=== PATIENT | female | born 1980 | race Asian ===

== ENCOUNTER 2018-04-05 09:33 | Observation (INO) | payer BC ==
[2018-04-05 10:57] LABS: PLATELET COUNT 150 10^3/uL (150-400)
--- NOTE | 2018-04-05 11:33 | GHP ---
DATE OF ADMISSION: 04/05/2018 TRIAGE NOTE OBSERVATION DIAGNOSIS: Intrauterine at 39 weeks gestation for blood pressure monitoring, r ule out preeclampsia. HISTORY OF PRESENT ILLNESS: The patient is a 38-year-old 1, para 0-0-1-0 with a last menstru al period of 07/05/2017, and an EDC of 04/11/2018 which was confirmed by a 12 week ultrasound. She h as had good care at [facility] since registration at 12 weeks gestation. course has been complicated only by AMA and she has had a negative test on level 2 ultraso und and anemia and she is on iron twice daily. On Sunday she was seen in the office for a regular sc heduled visit and had mildly elevated blood pressure at 128/80. She is asymptomatic. Denie s headache, scotomata, right upper quadrant pain or increased swelling and her urine dip has been neg ative. She was recommended to return to the office on Sunday for a repeat blood pressure check. Totj ozuna in the office she had 1 blood pressure, 142/84 and another one of 138/80, and she was sent to labo r and delivery for a full evaluation. She has been on labor and delivery and she continues to be asy mptomatic without complaint. She feels well in general. Blood pressures have been 122-137/76-86 at the highest, general 126/86, 122/77, 137/83, 134/81, 121/76, and 125/83. heart tones are 130s, reactive, moderate, variability category 1. She is karyn irregularly, does not feel them. Sh e denies leakage of fluid, vaginal bleeding, or any labor symptoms. ASSESSMENT AND PLAN: 38-year-old, 1, para 0, at 39 weeks gestation for blood pressure check and rule out preeclampsia. Patient has pH labs pending as well as urine P to C ratio. We will keep monitoring her blood pressures closely. If her labs remain negative and blood pressures remain in th is range she will be discharged home to follow up with [facility] on Sunday and given preca utions to call for headache, scotomata, right upper quadrant pain, or any other concerning symptoms. /[id number]/MODL
== END 2018-04-05 13:00 | disposition home or self-care (01) ==
LOC: FLD 09:33
PROVIDERS: ADMIT Obstetrics & Gynecology; ATTEND Obstetrics & Gynecology
DX: O13.3 Gestational [pregnancy-induced] hypertension without significant proteinuria, third trimester (principal); Z3A.39 39 weeks gestation of pregnancy
CPT/HCPCS: G0378 ×2

== ENCOUNTER 2018-04-12 06:57 | Inpatient (IN) | payer BC ==
[2018-04-12] MEDS ORDERED: OXYTOCIN/LR *STANDARD DOSE PROTOCOL IV SCH (07:30)
[2018-04-12] MEDS ORDERED: OXYTOCIN/RINGERS LACTATE 1,000 ML IV PRN (07:51)
[2018-04-12] MEDS ORDERED: OLIVE OIL 118 ML BTL MISC PRN (07:51)
[2018-04-12] MEDS ORDERED: TERBUTALINE SULFATE 1 MG/ML VIAL IV PRN (07:51)
[2018-04-12] MEDS ORDERED: IBUPROFEN 600 MG TAB PO PRN (07:51)
[2018-04-12] MEDS ORDERED: MISOPROSTOL 200 MCG TAB PR PRN (07:51)
[2018-04-12] MEDS ORDERED: LIDOCAINE 1% 300 MG/30 ML SDV SC PRN (07:51)
[2018-04-12] MEDS ORDERED: LR 1,000 ML IV PRN (07:51)
[2018-04-12] MEDS ORDERED: EPSOM SALT 454 GM TP PRN (07:51)
[2018-04-12 08:16] LABS: PLATELET COUNT 142 10^3/uL (150-400)
--- NOTE | 2018-04-12 11:12 | PDGENHP ---
History and Physical - Chief Complaint IOL, Gestational HTN - History of Present Illness 38 yo G1PO presented yesterday at 40w0d by JAYLYN of 04/11/18 for IOL secondary to new dx of Gestational HTN. BP's newly elevated in the office to mild range, sent to L&D for further monitoring and with more elevated pressures was recommended for IOL and had jeffries bulb placed. She denies any s/sx of preecclampsia on admission. overall quite uncomplicated otherwise. Anemia on iron supps. AMA. Labs: A Pos Antibody Neg RPR NR Rubella immune Hep B Neg HIV neg Trio Neg Standard neg TSH 3.7 Varicella immune GC/C neg AFP neg NIPT normal unknown gender GBS NEGATIVE History Information - Allergies/Home Medication List Allergies/Adverse Reactions: No Known Allergies Allergy (Unverified 04/05/18 09:51) I have personally reviewed and updated: family history, medical history, social history, surgical history - Past Medical History Additional medical history: Anemia, AMA, heartburn - Surgical History Additional surgical history: None - Family History Additional family history: Kidney disease (dialysis), Hypothyroid, RA - Social History Smoking Status: Never smoked Alcohol Use: None Review of Systems Review of Systems: ROS: 10pt was reviewed & negative except for what was stated in HPI & below Physical Exam Physical Exam: Alert, pleasant, NAD. Belly soft, longitudinal lie. Per KS - 1cm and long with jeffries bulb placement. FHR 130s, mod joselo, accels present, no decels. Lab Data & Imaging Review 04/12/18 05:55 04/12/18 08:00 WBC 6.29 10^3/uL (3.80-9.50) 04/12/18 05:55 RBC 4.16 10^6/uL (4.18-5.33) L 04/12/18 05:55 Hgb 12.5 g/dL (12.6-16.3) L 04/12/18 05:55 Hct 36.0 % (38.0-47.0) L 04/12/18 05:55 MCV 86.5 fL (81.5-99.8) 04/12/18 05:55 MCH 30.0 pg (27.9-34.1) 04/12/18 05:55 MCHC 34.7 g/dL (32.4-36.7) 04/12/18 05:55 RDW 12.6 % (11.5-15.2) 04/12/18 05:55 Plt Count 142 10^3/uL (150-400) L 04/12/18 05:55 MPV 11.2 fL (8.7-11.7) 04/12/18 05:55 Neut % (Auto) 64.0 % (39.3-74.2) 04/12/18 05:55 Lymph % (Auto) 27.3 % (15.0-45.0) 04/12/18 05:55 Kidder % (Auto) 6.5 % (4.5-13.0) 04/12/18 05:55 Eos % (Auto) 1.7 % (0.6-7.6) 04/12/18 05:55 Baso % (Auto) 0.2 % (0.3-1.7) L 04/12/18 05:55 Nucleat RBC Rel Count 0.0 % (0.0-0.2) 04/12/18 05:55 Absolute Neuts (auto) 4.02 10^3/uL (1.70-6.50) 04/12/18 05:55 Absolute Lymphs (auto) 1.72 10^3/uL (1.00-3.00) 04/12/18 05:55 Absolute Monos (auto) 0.41 10^3/uL (0.30-0.80) 04/12/18 05:55 Absolute Eos (auto) 0.11 10^3/uL (0.03-0.40) 04/12/18 05:55 Absolute Basos (auto) 0.01 10^3/uL (0.02-0.10) L 04/12/18 05:55 Absolute Nucleated RBC 0.00 10^3/uL (0-0.01) 04/12/18 05:55 Immature Gran % 0.3 % (0.0-1.1) 04/12/18 05:55 Immature Gran # 0.02 10^3/uL (0.00-0.10) 04/12/18 05:55 BUN 14 mg/dL (7-23) 04/12/18 08:00 Creatinine 0.6 mg/dL (0.6-1.0) 04/12/18 08:00 Estimated GFR > 60 04/12/18 08:00 Uric Acid 4.7 mg/dL (2.5-6.8) 04/12/18 08:00 Total Bilirubin 0.2 mg/dL (0.1-1.4) 04/12/18 08:00 Conjugated Bilirubin 0.1 mg/dL (0.0-0.5) 04/12/18 08:00 Unconjugated Bilirubin 0.1 mg/dL (0.0-1.1) 04/12/18 08:00 AST 24 IU/L (14-46) 04/12/18 08:00 ALT 23 IU/L (9-52) 04/12/18 08:00 Lactate Dehydrogenase 374 IU/L (313-618) 04/12/18 08:00 Patient ABO/Rh A POSITIVE 04/12/18 05:55 Antibody Screen NEGATIVE 04/12/18 05:55 Assessment & Plan Assessment: 38 yo G1 now at 40w1d here for IOL due to Gestational HTN. IOL: - Jeffries bulb still in place, Pit started this AM. Just started to feel uncomfortable ctx's this AM. - Will check when uncomfortable and take down jeffries, consider AROM. - Epidural PRN, pt prefers to avoid if possible. - GBS NEGATIVE. GHTN: - BP's mild range last night and this AM, no s/sx of PIH. - Labs WNL this AM, will repeat with changing BP or sx. - No meds thus far. Anemia - Will need iron supps PP. Rh pos, Rubella and Varicella immune. WILLIAMS
[2018-04-12] MEDS ORDERED: LIDOCAINE 1% 300 MG/30 ML SDV ONE (18:22)
[2018-04-12] MEDS ORDERED: OLIVE OIL 118 ML BTL ONE (18:23)
[2018-04-12] MEDS ORDERED: MISOPROSTOL 200 MCG TAB ONE (18:23)
[2018-04-12] MEDS ORDERED: TERBUTALINE SULFATE 1 MG/ML VIAL ONE (18:23)
[2018-04-12] MEDS ORDERED: AMMONIA AROMATIC 1 EACH AMP IH ONE (18:23)
[2018-04-12] MEDS ORDERED: fentaNYL 2MCG/ML/BUP 0.1% RTU 100 ML BAG EP ONE (19:40)
[2018-04-12] MEDS ORDERED: fentaNYL 100 MCG/2 ML INJ ONE (19:40)
[2018-04-12] MEDS ORDERED: PHENYLEPHRINE HCL 100 MCG/ML SYR ONE (19:40)
--- NOTE | 2018-04-12 20:09 | PDANEPAE ---
ANE History of Present Illness labor ANE Past Medical History - Cardiovascular History Hx Hypertension: Yes Hx Arrhythmias: No Hx Chest Pain: No Hx Coronary Artery / Peripheral Vascular Disease: No Hx CHF / Valvular Disease: No Hx Palpitations: No - Pulmonary History Hx COPD: No Hx Asthma/Reactive Airway Disease: No Hx Recent Upper Respiratory Infection: No Hx Oxygen in Use at Home: No Hx Sleep Apnea: No - Neurologic History Hx Cerebrovascular Accident: No Hx Seizures: No Hx Dementia: No - Endocrine History Hx Diabetes: No Hypothyroid: No Hyperthyroid: No Obesity: no - Renal History Hx Renal Disorders: No - Liver History Hx Hepatic Disorders: No - Chronic Pain History Chronic Pain: No ANE Review of Systems Review of Systems: - Exercise capacity Exercise capacity: >=4 METS ANE Patient History - Allergies Allergies/Adverse Reactions: No Known Allergies Allergy (Unverified 04/05/18 09:51) - Home Medications Home Medications: Iron 1 tab PO BID 04/12/18 [Last Taken Unknown] 1 tab PO DAILY 04/12/18 [Last Taken Unknown] - Anes Hx Hx Anesthesia Complications (with details): no prior anesthetics - Smoking Hx Smoking Status: Never smoked - Alcohol Use Alcohol Use: None ANE Labs/Vital Signs - Labs Result Diagrams: 04/12/18 05:55 04/12/18 08:00 - Vital Signs Height: 162.56 cm Weight: 60.781 kg ANE Physical Exam - Airway Mallampati Score: Class 2 Mouth exam: normal dental/mouth exam - Pulmonary Pulmonary: no respiratory distress - Cardiovascular Cardiovascular: regular rate and rhythym - ASA Status ASA Status: II ANE Anesthesia Plan Anesthesia Plan: spinal, epidural
[2018-04-12] MEDS ORDERED: ONDANSETRON 4 MG/2 ML VIAL IVP PRN (20:10)
[2018-04-12] MEDS ORDERED: PHENYLEPHRINE HCL 100 MCG/ML SYR IVP PRN (20:10)
[2018-04-12] MEDS ORDERED: NALOXONE HCL 0.4 MG/ML INJ IVP PRN (20:10)
--- NOTE | 2018-04-12 20:10 | PREANESOB ---
Obstetric Pre-Anesthesia Info - General Info Proposed Procedure: labor epidural : 1 Para: 0 JAYLYN: 04/11/18 Gestational Age: 40 week(s) and 1 day(s) - Info Status: Full Term FHR Pattern: Reassuring - Labor Status Cervical Dilation per last OB SVE: 6 Pitocin: In Use Indications for Labor Analgesia: Augmentation of Labor, Pain Control Anesthesia Allergies/Adverse Reactions: Allergy/AdvReac Type Severity Reaction Status Date / Time No Known Allergies Allergy Unverified 04/05/18 09:51 Home Medications: Medication Instructions Recorded Iron 1 tab PO BID 04/12/18 1 tab PO DAILY 04/12/18 Visit Medications: Generic Name Dose Route Start Last Admin Trade Name Freq PRN Reason Stop Dose Admin Diphenhydramine HCl 25 mg 04/12/18 17:17 04/12/18 17:22 Benadryl Injection IVP 10/09/18 17:16 25 mg Q4HRS PRN Administration Itching Oxytocin/Lactated Ringer's 500 mls @ 0 mls/hr 04/12/18 07:30 Pitocin 30 Units/Lr (Premix) IV 10/09/18 07:29 CONT SALLY Protocol Per Protocol Lactated Ringer's 1,000 mls @ 0 mls/hr 04/12/18 07:51 04/12/18 08:14 Lr IV 04/13/18 07:50 1,000 mls PRN PRN Administration SEE PROTOCOL CONDITIONS Protocol Per Protocol Oxytocin/Lactated Ringer's 1,000 mls @ 125 mls/hr 04/12/18 07:51 Pitocin 20 Units/Lr (Premix) IV PRN PRN Post bleeding Ibuprofen 600 mg 04/12/18 07:51 Motrin PO ONCE PRN post , pain Lidocaine HCl 300 mg 04/12/18 07:51 Lidocaine Hcl 1% SC 10/09/18 07:50 ONCE PRN episiotomy Magnesium Sulfate 454 gm 04/12/18 07:51 Epsom Salt TP 10/09/18 07:50 Q1H PRN perineal discomfort Misoprostol 800 - 1,000 mcg 04/12/18 07:51 Cytotec [place] ONCE PRN Vaginal Atony/Bleeding [place] Oil 118 ml 04/12/18 07:51 Sweet Oil MISC 10/09/18 07:50 ONCE PRN perineal massage Terbutaline Sulfate 0.25 mg 04/12/18 07:51 Brethine IV 10/09/18 07:50 ONCE PRN Tachysystole Discontinued Medications Generic Name Dose Route Start Last Admin Trade Name Susie PRN Reason Stop Dose Admin Ammonia (Aromatic Spirit) Confirm 04/12/18 18:23 Ammonia Aromatic Administered 04/12/18 18:24 Dose 1 each IH .STK-MED ONE Fentanyl Confirm 04/12/18 19:40 Sublimaze Administered 04/12/18 19:41 Dose 100 mcg .ROUTE .STK-MED ONE Fentanyl/Bupivacaine HCl Confirm 04/12/18 19:40 Fentanyl/Bupivacaine/Ns 2 Mcg/Ml 0.1% (Premix Administered 04/12/18 19:41 Dose 100 ml EP .STK-MED ONE Lidocaine HCl Confirm 04/12/18 18:22 Lidocaine Hcl 1% Administered 04/12/18 18:23 Dose 300 mg .ROUTE .STK-MED ONE Misoprostol Confirm 04/12/18 18:23 Cytotec Administered 04/12/18 18:24 Dose 1,000 mcg .ROUTE .STK-MED ONE [place] Oil Confirm 04/12/18 18:23 Sweet Oil Administered 04/12/18 18:24 Dose 118 ml .ROUTE .STK-MED ONE Phenylephrine HCl Confirm 04/12/18 19:40 Neosynephrine Administered 04/12/18 19:41 Dose 1,000 mcg .ROUTE .STK-MED ONE Terbutaline Sulfate Confirm 04/12/18 18:23 Brethine Administered 04/12/18 18:24 Dose 1 mg .ROUTE .STK-MED ONE - Anesthesia History Response to Local Anesthetics: Normal Anesthesia & Operative History: No Prior Problems - Vital Signs Height/Weight (Nursing): Height 162.56 cm Weight 60.781 kg - Focused Exam Mallampati Score: Class 2 Mouth exam: normal dental/mouth exam Pulmonary: no respiratory distress Cardiovascular: regular rate and rhythym Labs: 04/12/18 05:55 04/12/18 08:00 Patient ABO/Rh A POSITIVE 04/12/18 05:55 Uric Acid 4.7 mg/dL (2.5-6.8) 04/12/18 08:00 Total Bilirubin 0.2 mg/dL (0.1-1.4) 04/12/18 08:00 Conjugated Bilirubin 0.1 mg/dL (0.0-0.5) 04/12/18 08:00 Unconjugated Bilirubin 0.1 mg/dL (0.0-1.1) 04/12/18 08:00 AST 24 IU/L (14-46) 04/12/18 08:00 ALT 23 IU/L (9-52) 04/12/18 08:00 Lactate Dehydrogenase 374 IU/L (313-618) 04/12/18 08:00 - Plan Consent Signed and on Chart: Yes Patient/Guardian Understands and Agrees to Plan: Yes
[2018-04-12] MEDS ORDERED: LR 500 ML IV SCH (20:30)
[2018-04-12] MEDS ORDERED: fentaNYL 2MCG/ML/BUP 0.1% RTU 100 ML EP SCH (20:30)
--- NOTE | 2018-04-13 02:23 | OBDEL ---
Info Type: Vaginal Presentation at Delivery: Vertex L&D Analgesia/Anesthesia Type: Epidural GBS+: No Intrapartum Medications: Generic Name Dose Route Start Last Admin Trade Name Freq PRN Reason Stop Dose Admin Diphenhydramine HCl 25 mg 04/12/18 17:17 04/12/18 17:22 Benadryl Injection IVP 10/09/18 17:16 25 mg Q4HRS PRN Administration Itching Lactated Ringer's 1,000 mls @ 0 mls/hr 04/12/18 07:51 04/12/18 08:14 Lr IV 04/13/18 07:50 1,000 mls PRN PRN Administration SEE PROTOCOL CONDITIONS Protocol Per Protocol Fentanyl/Bupivacaine HCl 100 mls @ 0 mls/hr 04/12/18 20:30 04/12/18 20:24 Fentanyl/Bupivacaine/Ns 2 Mcg/Ml 0.1% (Premix EP 04/22/18 20:29 100 mls CONT SALLY Administration Protocol As Directed Lactated Ringer's 500 mls @ 0 mls/hr 04/12/18 20:30 04/12/18 20:20 Lr IV 10/09/18 20:29 500 mls CONT SALLY Administration As Directed [place] Oil 118 ml 04/12/18 07:51 04/12/18 23:18 Sweet Oil MISC 10/09/18 07:50 1 btl ONCE PRN Administration perineal massage Indications for Delivery: Gestational Hypertension (40 wks) Vaginal Delivery - Delivery Provider Delivery Physician/CNM: Ben Dawson - Labor and Delivery Onset of Contractions Date: 04/12/18 Onset of Contractions Time: 14:10 Onset of Contractions Type: Augmented Rupture of Membranes Date: 04/12/18 Rupture of Membranes Time: 14:00 Rupture of Membranes Type: Spontaneous Amniotic Fluid Color: Clear Dilation Complete Date: 04/12/18 Dilation Complete Time: 22:54 Placenta Delivery Date: 04/13/18 Placenta Delivery Time: 00:37 Total Hours of Labor: 10 Laceration: 2nd Degree, Other (Specify) (right labial) Repair: 3-0, 4-0 Vaginal Sponge Count Correct: Yes Vaginal Needle Count Correct: Yes Vaginal Sweep Performed: Yes EBL: 300 Delivery Events: None - Medications Labor Augmentation/Induction Methods Used: Pitocin, [place] Bulb Labor Augmentation/Induction Indication: Inadequate Contraction Frequency, Inadequate Contraction Strength, Other (Specify) (GHTN) Data JAYLYN: 04/11/18 Gestational Age: 40 week(s) and 2 day(s) Zimmerman Delivery Date: 04/13/18 Delivery Time: 00:30 Sex of : Female Score (1 Min): 8 Score (5 Min): 9 Shoulder Dystocia Time Head Delivered: 00:30 Time Body Delivered: 00:30 ICD10 Worksheet Patient Problems: Problems Problem Status Onset Gestational hypertension Acute (spontaneous vaginal delivery) Acute - ICD10 Problem Qualifiers (1) Gestational hypertension Qualifiers: Trimester: third trimester Qualified Code(s): O13.3 - Gestational [ -induced] hypertension without significant proteinuria, third trimester (2) (spontaneous vaginal delivery)
[2018-04-13] MEDS ORDERED: SIMETHICONE 80 MG TAB CHEW PO PRN (02:24)
[2018-04-13] MEDS ORDERED: oxyCODONE IR 5 MG TAB PO PRN (02:24)
[2018-04-13] MEDS ORDERED: HYDROCORTISONE 0.5% CREAM TP PRN (02:24)
[2018-04-13] MEDS ORDERED: DOCUSATE SODIUM 100 MG CAP PO PRN (02:24)
[2018-04-13] MEDS: ACETAMINOPHEN 325 MG TAB PO SCH ×4 (03:10→20:13)
--- NOTE | 2018-04-13 07:59 | POSTANESTH ---
Post Anesthetic Evaluation Cardiovascular Status: Normal, Stable Respiratory Status: Normal, Stable Level of Consciousness/Mental Status: Can Participate in Eval Pain Control: Adequate, Prn Tx Ordered Nausea/Vomiting Control: Adequate, Prn Tx Ordered Complications Possibly Related to Anesthesia: None Noted (Patient reports satisfaction with labor IVAN. She is able to ambulate to restroom to urinate without difficulty this am, denies residual weakness/numbness/headache.Point tenderness at IVAN puncture site, no erythema/edema.)
[2018-04-13] MEDS: IBUPROFEN 600 MG TAB PO SCH ×2 (10:14→17:46)
[2018-04-13] MEDS ORDERED: IRON POLYSAC/IRON HEME 28 MG TAB PO SCH (10:15)
--- NOTE | 2018-04-13 11:41 | OBPP ---
Progress Note Assessment/Plan: Assessment: PPD 1/2 gest HTN, b/p normal range, labs yesterday normal rash - on abd since , new on legs today --no itching anemia Plan: I feel benign rash, routine care,iron BID 04/13/18 11:38 04/13/18 11:39 Subjective/ Course: 04/13/18 11:39 Pt doing ok - feeling tired - no sleep yet. baby hasn't had really successful latch yet - reports baby does latch/suck on finger. discussed rash - no itching...pt not aware of it until RN mentioned it. Bld is like heavy menses. urinated fine No ACEVEDO or N/V, reports face feels puffy 04/13/18 11:41 04/13/18 11:42 Objective: 04/13/18 06:00 04/12/18 08:00 Patient ABO/Rh A POSITIVE 04/12/18 05:55 Uric Acid 4.7 mg/dL (2.5-6.8) 04/12/18 08:00 Total Bilirubin 0.2 mg/dL (0.1-1.4) 04/12/18 08:00 Conjugated Bilirubin 0.1 mg/dL (0.0-0.5) 04/12/18 08:00 Unconjugated Bilirubin 0.1 mg/dL (0.0-1.1) 04/12/18 08:00 AST 24 IU/L (14-46) 04/12/18 08:00 ALT 23 IU/L (9-52) 04/12/18 08:00 Lactate Dehydrogenase 374 IU/L (313-618) 04/12/18 08:00 Temp Pulse Resp BP Pulse Ox 36.6 C 80 18 110/59 L 98 04/13/18 06:00 04/13/18 06:00 04/13/18 06:00 04/13/18 06:00 04/13/18 06:00 Uterine Position/Fundal Height: At Umbilicus Uterine Tone: Firm Physical Exam - Physical Exam Abdomen: non-tender, soft, other (FF at umb, fine macular rash on mid abd) Extremities: non-tender, pedal edema (none, rash on lower ext bilat and behind thighs ) Skin: normal color, warm/dry, rash (as noted above) Neuro/Psych: alert, normal mood/affect
[2018-04-13] MEDS: FERROUS SULFATE 325 MG TAB PO SCH ×2 (14:50→20:13)
[2018-04-14] MEDS: IBUPROFEN 600 MG TAB PO SCH ×6 (01:26→23:11)
[2018-04-14] MEDS: DIPHENHYDRAMINE CREAM TP PRN ×3 (01:39→23:19)
[2018-04-14] MEDS: ACETAMINOPHEN 325 MG TAB PO SCH ×3 (03:47→18:09)
[2018-04-14] MEDS: FERROUS SULFATE 325 MG TAB PO SCH ×2 (08:44→23:14)
--- NOTE | 2018-04-14 11:40 | OBPP ---
Progress Note Assessment/Plan: Assessment: PPD2 s/p - IOL for new dx of GHTN at 40wks. Never needed medications for BP 's, never sx, no lab abnormalities. GHTN: BP's mild range to normal, asymptomatic. Rash: I think this is PUPPs - discussed that could be true allergy, or Atopic Rash of (excematous, etc), vs PUPPs. I think the look, presentation, flare , periumbilical sparing... all suggest PUPPs. Also there really werent' any new meds/additions when this started to point to allergy. Discussed observation, oatmeal baths, topical and oral antihistamines as first line. Next steps would be topical (mid-potency) steroid, followed by oral prednisone taper if really bothered by sx. She'd like to avoid steroids if possible. Anemia: Iron supps. Dispo: Would like to stay until tomorrow, I think prudent given that this rash is also currently worse than it was the day before. JM Subjective/ Course: Generally doing well although more bothered - and more concerned - about this rash. Began on her abdomen in the week PRIOR to induction and delivery - no new foods or drugs during that time to point to allergic cause. Was present only on abdomen and not too bothersome on admission and with delivery, but has noticed spreading on belly and present on dependent area of thighs and down her shins. Slightly tender, feels "warm and tense" under the skin, a bit itching. BF otherwise going well. Pain controlled. Objective: 04/13/18 06:00 04/12/18 08:00 Patient ABO/Rh A POSITIVE 04/12/18 05:55 Uric Acid 4.7 mg/dL (2.5-6.8) 04/12/18 08:00 Total Bilirubin 0.2 mg/dL (0.1-1.4) 04/12/18 08:00 Conjugated Bilirubin 0.1 mg/dL (0.0-0.5) 04/12/18 08:00 Unconjugated Bilirubin 0.1 mg/dL (0.0-1.1) 04/12/18 08:00 AST 24 IU/L (14-46) 04/12/18 08:00 ALT 23 IU/L (9-52) 04/12/18 08:00 Lactate Dehydrogenase 374 IU/L (313-618) 04/12/18 08:00 Temp Pulse Resp BP Pulse Ox 36.6 C 89 16 121/69 H 98 04/14/18 08:00 04/14/18 08:00 04/14/18 08:00 04/14/18 08:00 04/14/18 08:00 Uterine Position/Fundal Height: At Umbilicus Uterine Tone: Firm Physical Exam - Physical Exam Abdomen: non-tender, soft, other (On belly she has nearly confluent papular rash , raised, warm. Also thighs and shins, no open lesions/sores. Spares the umbilicus.), No distended
[2018-04-15] MEDS: ACETAMINOPHEN 325 MG TAB PO SCH ×5 (00:18→22:23)
[2018-04-15] MEDS: IBUPROFEN 600 MG TAB PO SCH ×4 (06:12→22:36)
[2018-04-15] MEDS: DIPHENHYDRAMINE CREAM TP PRN ×3 (06:13→22:23)
[2018-04-15] MEDS: FERROUS SULFATE 325 MG TAB PO SCH (08:34)
--- NOTE | 2018-04-15 11:30 | OBPP ---
Progress Note Assessment/Plan: Assessment: 38 G1 now P1 PPD#2 s/p - doing well overall, though persistent rash. BPs stable - was induced for gest HTN Plan: DC home. pt to check random BPs at home and contact us if elevated > 160 /100. Prefers to stay with topical diphenhydramine for rash for now. Knows to call if rash worsens. Ly Luciano MD, FACOG [facility] 04/15/18 12:10 Subjective/ Course: Generally doing well although more bothered - and more concerned - about this rash. Began on her abdomen in the week PRIOR to induction and delivery - no new foods or drugs during that time to point to allergic cause. Was present only on abdomen and not too bothersome on admission and with delivery, but has noticed spreading on belly and present on dependent area of thighs and down her shins. Slightly tender, feels "warm and tense" under the skin, a bit itching. BF otherwise going well. Pain controlled. 04/15/18 12:16 Pt doing well. Rash seems stable - no worse than yesterday. Itching is tolerable and decreases with topical Benedryl cream. BF going well. MOd lochia. Ambulating and voiding without difficulty. + BM yesterday without issue. Objective: 04/13/18 06:00 04/12/18 08:00 Patient ABO/Rh A POSITIVE 04/12/18 05:55 Uric Acid 4.7 mg/dL (2.5-6.8) 04/12/18 08:00 Total Bilirubin 0.2 mg/dL (0.1-1.4) 04/12/18 08:00 Conjugated Bilirubin 0.1 mg/dL (0.0-0.5) 04/12/18 08:00 Unconjugated Bilirubin 0.1 mg/dL (0.0-1.1) 04/12/18 08:00 AST 24 IU/L (14-46) 04/12/18 08:00 ALT 23 IU/L (9-52) 04/12/18 08:00 Lactate Dehydrogenase 374 IU/L (313-618) 04/12/18 08:00 Temp Pulse Resp BP Pulse Ox 37.1 C 77 17 129/86 H 100 04/15/18 08:00 04/15/18 08:00 04/15/18 08:00 04/15/18 08:00 04/15/18 08:00 BPs stable - 120s / 60-80s gen - pleasant, NAD CV - RRR chest - CTAB abd - soft, + BS, fundus firm at u-2, NT ext - 2+ pitting edema B, no calf tenderness skin - erythema on abdomen is more pale, rash on BLE shins and feet is more erythematous with some papules. Back of upper arms and back of thighs with some areas of rash also. Uterine Position/Fundal Height: Umbilicus -2 Uterine Tone: Firm
--- NOTE | 2018-04-15 12:24 | OBGCSDC ---
General Delivery Information - General Info : 1 Para: 1 Abortions: 0 Type: Vaginal L&D Analgesia/Anesthesia Type: Epidural Admission Date: 04/12/18 Labs: Patient ABO/Rh A POSITIVE 04/12/18 05:55 Hct 28.9 % (38.0-47.0) L 04/13/18 06:00 - Hospital Course : Generally doing well although more bothered - and more concerned - about this rash. Began on her abdomen in the week PRIOR to induction and delivery - no new foods or drugs during that time to point to allergic cause. Was present only on abdomen and not too bothersome on admission and with delivery, but has noticed spreading on belly and present on dependent area of thighs and down her shins. Slightly tender, feels "warm and tense" under the skin, a bit itching. BF otherwise going well. Pain controlled. 04/15/18 12:16 Pt doing well. Rash seems stable - no worse than yesterday. Itching is tolerable and decreases with topical Benedryl cream. BF going well. MOd lochia. Ambulating and voiding without difficulty. + BM yesterday without issue. Vaginal - Delivery Provider Delivery Physician/CNM: Ben Dawson - Diagnosis Labor: Augmented Rupture of Membranes Type: Spontaneous Amniotic Fluid Color: Clear Laceration: 2nd Degree, Other (Specify) (right labial) Repair: 3-0, 4-0 Delivery Events: None - Delivery EBL: 300 [place] Data JAYLYN: 04/11/18 Gestational Age: 40 week(s) and 4 day(s) Zimmerman Delivery Date: 04/13/18 Delivery Time: 00:30 Sex of : Female Score (1 Min): 8 Score (5 Min): 9 Discharge Information - Discharge Information Condition: Good Instruction/Follow Up: See Instruction Sheet
[2018-04-16] MEDS: IBUPROFEN 600 MG TAB PO SCH ×2 (00:36→06:17)
[2018-04-16] MEDS: FERROUS SULFATE 325 MG TAB PO SCH ×2 (00:37→15:00)
[2018-04-16] MEDS: ACETAMINOPHEN 325 MG TAB PO SCH ×2 (04:39→06:17)
--- NOTE | 2018-04-16 09:54 | OBPP ---
Progress Note Assessment/Plan: Assessment: PPD 2 1/ gest HTN, rash - on abd since Weds - resolved now, on legs since Sat -- itching managed by benadryl cream anemia Plan: d/c home, baby's weight stable - will check tomorrow in ped's office 04/13/18 11:38 04/13/18 11:39 04/16/18 09:50 Subjective/ Course: Generally doing well although more bothered - and more concerned - about this rash. Began on her abdomen in the week PRIOR to induction and delivery - no new foods or drugs during that time to point to allergic cause. Was present only on abdomen and not too bothersome on admission and with delivery, but has noticed spreading on belly and present on dependent area of thighs and down her shins. Slightly tender, feels "warm and tense" under the skin, a bit itching. BF otherwise going well. Pain controlled. 04/15/18 12:16 Pt doing well. Rash seems stable - no worse than yesterday. Itching is tolerable and decreases with topical Benedryl cream. BF going well. MOd lochia. Ambulating and voiding without difficulty. + BM yesterday without issue. 04/16/18 09:52 Pt doing well. happy that baby's latch is going better. also pumping and getting colostrum. baby's weight stable. bld is light. urinating fine. ready for d/c today. disc using benadryl cream prn for rash. Objective: 04/13/18 06:00 04/12/18 08:00 Patient ABO/Rh A POSITIVE 04/12/18 05:55 Uric Acid 4.7 mg/dL (2.5-6.8) 04/12/18 08:00 Total Bilirubin 0.2 mg/dL (0.1-1.4) 04/12/18 08:00 Conjugated Bilirubin 0.1 mg/dL (0.0-0.5) 04/12/18 08:00 Unconjugated Bilirubin 0.1 mg/dL (0.0-1.1) 04/12/18 08:00 AST 24 IU/L (14-46) 04/12/18 08:00 ALT 23 IU/L (9-52) 04/12/18 08:00 Lactate Dehydrogenase 374 IU/L (313-618) 04/12/18 08:00 Temp Pulse Resp BP Pulse Ox 36.1 C 95 16 122/78 H 96 04/15/18 20:57 04/15/18 20:57 04/15/18 20:57 04/15/18 20:57 04/15/18 20:57 Uterine Position/Fundal Height: Umbilicus -2 Uterine Tone: Firm Physical Exam - Physical Exam Abdomen: non-tender, soft, other (FF at umb -2) Extremities: non-tender, pedal edema (mild) Skin: normal color, warm/dry, rash (lower legs onto feet - onto thighs, resolved on abd) Neuro/Psych: alert, normal mood/affect
[2018-04-16 15:03] VITALS: BP 126/82
== END 2018-04-16 13:00 | disposition home or self-care (01) | DRG 807 ==
LOC: FLD 06:57 → FOB 04-13 03:41
PROVIDERS: ADMIT Obstetrics & Gynecology; ATTEND Obstetrics & Gynecology
PROC: 0U7C7ZZ Dilation of Cervix, Via Natural or Artificial Opening (ICD-10-PCS; 2018-04-12)
PROC: 3E033VJ Introduction of Other Hormone into Peripheral Vein, Percutaneous Approach (ICD-10-PCS; 2018-04-12)
PROC: 10E0XZZ Delivery of Products of Conception, External Approach (ICD-10-PCS; principal; 2018-04-13)
PROC: 0KQM0ZZ Repair Perineum Muscle, Open Approach (ICD-10-PCS; principal; 2018-04-13)
PROC: 10907ZC Drainage of Amniotic Fluid, Therapeutic from Products of Conception, Via Natural or Artificial Opening (ICD-10-PCS; principal; 2018-04-13)
DX: O13.4 Gestational [pregnancy-induced] hypertension without significant proteinuria, complicating childbirth (principal); Z37.0 Single live birth; Z3A.40 40 weeks gestation of pregnancy; O99.02 Anemia complicating childbirth; D64.9 Anemia, unspecified; O99.72 Diseases of the skin and subcutaneous tissue complicating childbirth; R21 Rash and other nonspecific skin eruption; O70.1 Second degree perineal laceration during delivery
CPT/HCPCS: J1200; J2370; J2590; J3010; J3105